=== PATIENT | male | born 1955 | race Caucasian/White ===

== ENCOUNTER → 2017-09-20 | Outpatient (CLI) | payer OTHER, MEDICAID | END | disposition home or self-care (01) | LOC: US 13:47 | DX: I51.7 Cardiomegaly (principal); I49.1 Atrial premature depolarization; I49.9 Cardiac arrhythmia, unspecified; I48.91 Unspecified atrial fibrillation; M79.605 Pain in left leg; M79.604 Pain in right leg | CPT/HCPCS: 93306; 93925 ==